=== PATIENT | female | born 1950 | race Caucasian/White ===

== ENCOUNTER 2021-06-06 10:48 | Emergency (ER) | payer BC, MEDICAID ==
[~2021-06-06] VITALS: Ht 157.4 cm; Wt 80.0 kg
[~2021-06-06 10:48] MED LIST: SULF1TAB35 PO
[2021-06-06 11:17] LABS: BASOPHILS % (AUTO) 0 % (0-10); EOSINOPHILS # (AUTO) 0.2 10^3/uL (0.0-0.3); EOSINOPHILS % (AUTO) 2 % (0-10); HEMATOCRIT 40 % (35-52); HEMOGLOBIN 12.5 g/dL (11.5-16.0); LYMPHOCYTES # (AUTO) 3.6 10^3/uL (1.0-4.0); LYMPHOCYTES % (AUTO) 37 % (12-44); MEAN CORPUSCULAR HEMOGLOBIN 25 pg (25-34); MEAN CORPUSCULAR HGB CONC 31 g/dL (32-36); MEAN CORPUSCULAR VOLUME 79 fL (80-99); MEAN PLATELET VOLUME 9.6 fL (9.0-12.2); MONOCYTES # (AUTO) 0.7 10^3/uL (0.0-1.0); MONOCYTES % (AUTO) 7 % (0-12); NEUTROPHILS # (AUTO) 5.1 10^3/uL (1.8-7.8); NEUTROPHILS % (AUTO) 53 % (42-75); PLATELET COUNT 282 10^3/uL (130-400); WHITE BLOOD COUNT 9.6 10^3/uL (4.3-11.0)
[2021-06-06 11:25] LABS: ALBUMIN 4.1 GM/DL (3.2-4.5); CHLORIDE 106 MMOL/L (98-107); POTASSIUM 3.7 MMOL/L (3.6-5.0); SODIUM 143 MMOL/L (135-145)
[2021-06-06 11:26] LABS: CALCIUM 9.3 MG/DL (8.5-10.1)
[2021-06-06 11:28] LABS: GLUCOSE 90 MG/DL (70-105); TOTAL PROTEIN 7.1 GM/DL (6.4-8.2)
[2021-06-06 11:29] LABS: BILIRUBIN,TOTAL 0.5 MG/DL (0.1-1.0); CARBON DIOXIDE 25 MMOL/L (21-32)
[2021-06-06 11:31] LABS: ALKALINE PHOSPHATASE 90 U/L (40-136); CREATININE SERUM 0.82 MG/DL (0.60-1.30); GFR ESTIMATED > 60
[2021-06-06 11:32] LABS: BUN/CREATININE RATIO 15
[2021-06-06 11:34] LABS: ALANINE AMINOTRANSFERASE 21 U/L (0-55); MAGNESIUM 2.2 MG/DL (1.6-2.4)
[2021-06-06 11:38] LABS: PROTHROMBIN TIME PATIENT 13.5 SEC (12.2-14.7)
--- NOTE | 2021-06-06 11:48 | ED Chest Pain ---
General Chief Complaint: Chest Pain Stated Complaint: CP Nursing Triage Note: Pt ambulatory into ER with complaint of chest pain x15 minutes. Pt states that it comes and goes and is a pressure like pain. Pt states that it comes and goes and currently is at a 3/10. States that at its worse it was a 9/10. Pt at rest when it started. History of Present Illness Date Seen by Provider: Jun 06, 2021 Time Seen by Provider: 11:15 Initial Comments Patient is a 71-year-old female who presents to the emergency department today with a chief complaint of chest pain that lasted about 15 to 20 minutes onset sometime between 1030 and 11 AM this morning while at rest. Patient states that it is coming gone over the course of the last several weeks and feels like a pressure-like pain. Occasionally she states that she has right ear pain that seems to radiate down her neck into her chest and across to her left chest. She states currently it is about a "3" and at its worst it was a "9". Patient stat es that she has had multiple previous evaluations for similar pain. She is even had stress tests her most recent one was about a year ago. She states it was done at [facility]. She does have a primary care doctor in [place] and has an appointment with him a week from Thursday. Patient denies any recent illnesses such as fevers, chills, cough or congestion. She had no associated symptoms with the chest pain. No diaphoresis, shortness of breath or nausea. Patient has never been a smoker. She does not take medications for high blood pressure but is quite hypertensive today. Diastolic is running at about 105. She is not a diabetic. All other review of systems reviewed and negative except as stated above. Timing/Duration: 1/2 hour Severity/Quality: moderate Location: central Radiation: other (Right ear) Activities at Onset: none Prior CP/Workup: other (Prior exercise stress test approximately 1 year ago) ASA po HOT MILL SHEARER: No NTG SL HOT MILL SHEARER: No Associated Symptoms: denies symptoms Allergies and Home Medications Allergies Coded Allergies: Tetanus Vaccines & Toxoid (Verified Allergy, Unknown, 10/15/15) Home Medications Sulfamethoxazole/Trimethoprim 1 Each Tablet, 1 EACH PO BID Prescribed by: NIRANJAN MEJIA on 10/15/15 8460 Patient Home Medication List Home Medication List Reviewed: Yes Review of Systems Review of Systems Constitutional: see HPI EENTM: No Symptoms Reported Respiratory: See HPI Cardiovascular: Chest Pain Gastrointestinal: No Symptoms Reported Genitourinary: No Symptoms Reported Musculoskeletal: no symptoms reported Skin: no symptoms reported Psychiatric/Neurological: No Symptoms Reported Endocrine: No Symptoms Reported All Other Systems Reviewed Negative Unless Noted: Yes Past Cnbmiht-Brlqth-Fnlsvj Hx Patient Social History Tobacco Use?: No Use of E-Cig and/or Vaping dev: No Substance use?: No Alcohol Use?: No Pt feels they are or have been: No Immunizations Up To Date Influenza Vaccine Up-to-Date: Yes; Up-to-Date Past Medical History Bladder Surgery, Hysterectomy 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 oz. 104.762111fc; 32.00 BMI Method:Estimated General Appearance: No Apparent Distress, WD/WN Neck: Normal Inspection Respiratory: Lungs Clear, Normal Breath Sounds, No Accessory Muscle Use, No Respiratory Distress Cardiovascular: Regular Rate, Rhythm Gastrointestinal: Non Tender, Soft Extremity: Normal Capillary Refill, Normal Inspection, Normal Range of Motion, Non Tender, No Pedal Edema Neurologic/Psychiatric: Alert, Oriented x3, No Motor/Sensory Deficits, Normal Mood/Affect Skin: Normal Color, Warm/Dry Progress/Results/Core Measures Results/Orders Lab Results Laboratory Tests Test 06/06/21 11:03 06/06/21 11:05 Range/Units White Blood Count 9.6 4.3-11.0 10^3/uL Red Blood Count 5.02 3.80-5.11 10^6/uL Hemoglobin 12.5 11.5-16.0 g/dL Hematocrit 40 35-52 % Mean Corpuscular Volume 79 L 80-99 fL Mean Corpuscular Hemoglobin 25 25-34 pg Mean Corpuscular Hemoglobin Concent 31 L 32-36 g/dL Red Cell Distribution Width 15.6 H 10.0-14.5 % Platelet Count 282 130-400 10^3/uL Mean Platelet Volume 9.6 9.0-12.2 fL Immature Granulocyte % (Auto) 0 % Neutrophils (%) (Auto) 53 42-75 % Lymphocytes (%) (Auto) 37 12-44 % Monocytes (%) (Auto) 7 0-12 % Eosinophils (%) (Auto) 2 0-10 % Basophils (%) (Auto) 0 0-10 % Neutrophils # (Auto) 5.1 1.8-7.8 10^3/uL Lymphocytes # (Auto) 3.6 1.0-4.0 10^3/uL Monocytes # (Auto) 0.7 0.0-1.0 10^3/uL Eosinophils # (Auto) 0.2 0.0-0.3 10^3/uL Basophils # (Auto) 0.0 0.0-0.1 10^3/uL Immature Granulocyte # (Auto) 0.0 0.0-0.1 10^3/uL Prothrombin Time 13.5 12.2-14.7 SEC INR Comment 1.0 0.8-1.4 Activated Partial Thromboplast Time 31 24-35 SEC Sodium Level 143 135-145 MMOL/L Potassium Level 3.7 3.6-5.0 MMOL/L Chloride Level 106 98-107 MMOL/L Carbon Dioxide Level 25 21-32 MMOL/L Anion Gap 12 5-14 MMOL/L Blood Urea Nitrogen 12 7-18 MG/DL Creatinine 0.82 0.60-1.30 MG/DL Estimat Glomerular Filtration Rate > 60 BUN/Creatinine Ratio 15 Glucose Level 90 70-105 MG/DL Calcium Level 9.3 8.5-10.1 MG/DL Corrected Calcium 9.2 8.5-10.1 MG/DL Magnesium Level 2.2 1.6-2.4 MG/DL Total Bilirubin 0.5 0.1-1.0 MG/DL Aspartate Amino Transf (AST/SGOT) 21 5-34 U/L Alanine Aminotransferase (ALT/SGPT) 21 0-55 U/L Alkaline Phosphatase 90 40-136 U/L Myoglobin 38.8 10.0-92.0 NG/ML Troponin I < 0.028 <0.028 NG/ML Total Protein 7.1 6.4-8.2 GM/DL Albumin 4.1 3.2-4.5 GM/DL My Orders Orders - BARBARA JARVIS MD Cbc With Automated Diff (06/06/21 11:10) Magnesium (06/06/21 11:10) Chest 1 View, Ap/Pa Only (06/06/21 11:10) Ekg Tracing (06/06/21 11:10) Comprehensive Metabolic Panel (06/06/21 11:10) Myoglobin Serum (06/06/21 11:10) Protime With Inr (06/06/21 11:10) Partial Thromboplastin Time (06/06/21 11:10) O2 (06/06/21 11:10) Monitor-Rhythm Ecg Trace Only (06/06/21 11:10) Lipid Panel (06/07/21 06:00) Ed Iv/Invasive Line Start (06/06/21 11:10) Troponin I (06/06/21 11:10) Vital Signs/I&O 06/06/21 06/06/21 10:51 10:51 Temp 36.8 Pulse 77 Resp 20 B/P (MAP) 197/109 (138) Pulse Ox 99 O2 Delivery Room Air Room Air Blood Pressure Mean: 138 Progress Progress Note : Time: 12:01 Progress Note Notified by the senior director of global commercial technology solutions that Ms. Bradford no longer has any chest pain and would like to go home. I did review her labs, EKG and chest x-ray. Her labs are all normal, troponin is undetectable. EKG is unremarkable and chest x-ray is clear. Patient has follow-up with her primary care physician in 1 week. She is encouraged to stay for second troponin but states that she does not want to. She is quite hypertensive and I have encouraged her to have this addressed by her primary care doctor. She has no evidence of renal insufficiency, pulmonary edema, any other signs or symptoms of endorgan damage related to her high blood pressure. This is not hypertensive emergency. She has had multiple episodes of this similar pain in the past with a normal stress test. I did encourage her to come back to the emergency room if she gets any further pain especially associated with sweating, nausea or shortness of breath. She verbalized understanding. All questions are sought and answered. Patient is stable for discharge. Initial ECG Impression Date: Jun 06, 2021 Initial ECG Impression Time: 11:00 Initial ECG Rate: 74 Initial ECG Rhythm: Normal Sinus Initial ECG Intervals: Normal Initial ECG Impression: Normal Comment PVC noted Diagnostic Imaging Diagonstic Imaging: Xray Plain Films/CT/US/NM/MRI: chest Comments NAME: SHANNAN REDDY [facility] REC#: [id number] PT STATUS: REG ER : 1950 PHYSICIAN: BARBARA JARVIS MD ADMIT DATE: 06/06/21/ER Draft Date of Exam:06/06/21 CHEST 1 VIEW, AP/PA ONLY INDICATION: Chest pain Frontal chest obtained at 11:43 a.m. and compared to 01/10/2014. Heart and mediastinal silhouette are normal in appearance. The lungs are clear. There is no pneumothorax or pleural fluid. IMPRESSION: No acute process in the chest. Dictated on workstation # [id number] Dict: 06/06/21 1157 Trans: 06/06/21 1159 [facility] [id number] Interpreted by: KEYUR PRINCE MD Electronically signed by: Departure Impression Primary Impression: Chest pain Qualified Codes: R07.9 - Chest pain, unspecified Disposition: 01 HOME, SELF-CARE Condition: Stable Departure-Patient Inst. Decision time for Depature: 12:03 Referrals: NO,LOCAL PHYSICIAN (PCP/Family) Primary Care Physician Patient Instructions: Chest Pain That Is Not Caused by the Heart (DC) Add. Discharge Instructions: Please keep your follow-up appointment with your primary care doctor in 1 week. Come back to the emergency room for any recurrence of chest pain especially associated with nausea, sweating or shortness of breath. Continue to take daily prescribed medications as prescribed. BARBARA JARVIS MD Jun 06, 2021 11:48
--- NOTE | 2021-06-06 11:59 | Diagnostic Imaging Report ---
INDICATION: Chest pain Frontal chest obtained at 11:43 a.m. and compared to 01/10/2014. Heart and mediastinal silhouette are normal in appearance. The lungs are clear. There is no pneumothorax or pleural fluid. IMPRESSION: No acute process in the chest. Dictated by: Dictated on workstation # [id number]
[2021-06-06 12:11] VITALS: BP 156/83
== END 2021-06-06 12:11 | disposition home or self-care (01) ==
LOC: EDUNIT# 10:48 → ER 10:50
DX: R07.9 Chest pain, unspecified (principal)
CPT/HCPCS: 36415; 71045; 80053; 83735; 83874; 84484; 85025; 85610; 85730; 93005; 93041